=== PATIENT | male | born 1945 | race Caucasian/White ===

== ENCOUNTER 2018-03-18 12:01 | Emergency (ER) | payer OTHER ==
--- NOTE | 2018-03-18 12:20 | EDPHY ---
H & P Time Seen by Provider: 03/18/18 12:03 HPI/ROS: CHIEF COMPLAINT: Syncope, hit head HISTORY OF PRESENT ILLNESS: Patient is a 72-year-old diabetic man with a 3 vessel CABG 1 week ago at an outside hospital. Today he stood up abruptly been became lightheaded and syncopal. He fell and hit his head on the ground. He has a laceration to the occipital region. 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 He did not lose conscious. He is not currently on blood thinners. Severity: Moderate Modifying factors: Gradually improving REVIEW OF SYSTEMS: Constitutional: denies: chills, fever, recent illness, recent injury EENTM: denies: blurred vision, double vision, nose congestion Respiratory: denies: cough, shortness of breath Cardiac: denies: chest pain, irregular heart rate, lightheadedness, palpitations Gastrointestinal/Abdominal: denies: abdominal pain, diarrhea, nausea, vomiting, blood streaked stools Genitourinary: denies: dysuria, frequency, hematuria, pain Musculoskeletal: denies: joint pain, muscle pain Skin: denies: lesions, rash, jaundice, bruising Neurological: See HPI denies: headache, numbness, paresthesia, tingling, dizziness, weakness Hematologic/Lymphatic: denies: blood clots, easy bleeding, easy bruising Immunologic/allergic: denies: HIV/AIDS, transplant 10 systems reviewed and negative except as noted EXAM: GENERAL: Well-appearing, well-nourished and in no acute distress. HEAD: Atraumatic, normocephalic. EYES: Pupils equal round and reactive to light, extraocular movements intact, sclera anicteric, conjunctiva are normal. ENT: TMs normal, nares patent, oropharynx clear without exudates. Moist mucous membranes. NECK: Normal range of motion, supple without lymphadenopathy or JVD. LUNGS: Breath sounds clear to auscultation bilaterally and equal. No wheezes rales or rhonchi. HEART: Regular rate and rhythm without murmurs, rubs or gallops. ABDOMEN: Soft, nontender, normoactive bowel sounds. No guarding, no rebound. No masses appreciated. BACK: No CVA tenderness, no spinal tenderness, step-offs or deformities EXTREMITIES: Normal range of motion, no pitting or edema. No clubbing or cyanosis. NEUROLOGICAL: Answering questions appropriately, Cranial nerves II through XII grossly intact. Normal speech 5/5 strength, normal movement in all extremities , normal sensation, normal reflexes PSYCH: Normal mood, normal affect. SKIN: Warm, dry, normal turgor, no visible rashes or lesions. Source: Patient Exam Limitations: No limitations - Medical/Surgical History Hx Asthma: No Hx Chronic Respiratory Disease: No Hx Diabetes: Yes Hx Cardiac Disease: Yes Hx Renal Disease: No Hx Cirrhosis: No Hx Alcoholism: No - Family History Significant Family History: No pertinent family hx - Social History Smoking Status: Former smoker Alcohol Use: Sober Drug Use: None Constitutional: Initial Vital Signs Heart Rate 89 03/18/18 12:18 Respiratory Rate 24 H 03/18/18 12:18 Blood Pressure 156/78 H 03/18/18 12:18 O2 Sat (%) 97 03/18/18 12:18 O2 Delivery Mode Room Air O2 (L/minute) 3 Allergies/Adverse Reactions: No Known Allergies Allergy (Unverified 03/18/18 12:14) Home Medications: Medication Instructions Recorded Levothyroxine 03/18/18 Metformin HCl 03/18/18 Metoprolol Succinate 03/18/18 Zocor 03/18/18 Medical Decision Making - Diagnostics EKG Interpretation: An EKG obtained and was read and documented in trace view. Please see trace view for full reading and report. Sinus rhythm, no acute ischemic changes Imaging: Discussed imaging studies w/ scallop binder Radiologist Procedures: Procedure: Laceration repair. Verbal consent was obtained from the patient. The 3 cm occipital laceration was anesthetized with 1% lidocaine with epi and bicarbonate locally infiltrated. The wound was irrigated copiously according to protocol, draped and explored to its base. It was approximately 1 cm deep. There were no deep structures involved. No tendon, nerve, or vascular injury was identified when explored. No foreign body was identified. The wound was repaired with 4.0 Prolene, 3 sutures, interrupted. The wound repair was simple without wound margin revisement or multiple flap alignment. The procedure was performed by myself. A dressing was then placed with sterile gauze and bacitracin. ED Course/Re-evaluation: There was some delay in the ordering because of trouble with registration. 1:10 p.m. the patient continues to improve. His family states that he is acting normal. No chest pain. No shortness of breath. 1:50 p.m. the patient continues to do well. We discussed suture care. Family is here to take him home. Discussed concussion recovery. He does not have any chest pain. Differential Diagnosis: Partial list of the Differential diagnosis considered include but were not limited to; syncope, scalp laceration, concussion and although unlikely based on the history and physical exam, I also considered fracture, intracranial injury, acute coronary disease, arrhythmia. I discussed these differential diagnoses and the plan with the patient as well as the usual and expected course. The patient understands that the diagnosis is provisional and that in medicine we are not always correct and that further workup is often warranted. Usual and customary warnings were given. All of the patient's questions were answered. The patient was instructed to return to the emergency department should the symptoms at all worsen or return, otherwise to followup with the physician as we discussed. - Data Points Laboratory Results: Laboratory Results 03/18/18 12:12 03/18/18 12:12 Point of Care Test Results: Chemistry 03/18/18 12:14 POC Troponin I 0.01 ng/mL ng/mL (0.00-0.08) Departure - Departure Disposition: Home, Routine, Self-Care Clinical Impression: Syncope and collapse Concussion Qualifiers: Encounter type: initial encounter Loss of consciousness presence/duration: without LOC Qualified Code(s): S06.0X0A - Concussion without loss of consciousness, initial encounter Scalp laceration Qualifiers: Encounter type: initial encounter Qualified Code(s): S01.01XA - Laceration without foreign body of scalp, initial encounter Condition: Fair Instructions: Laceration (ED), Syncope (ED), Concussion (ED) Additional Instructions: Have your sutures removed in 10 days. Referrals: Patient,NotPresent [Unknown] - As per Instructions [facility] ,. [Edm Groups for Call Sched] - 2-3 days, if not improved
--- NOTE | 2018-03-18 12:41 | CPEKG ---
Test Reason : OPEN Blood Pressure : / mmHG Vent. Rate : 088 BPM Atrial Rate : 086 BPM P-R Int : 206 ms QRS Dur : 096 ms QT Int : 398 ms P-R-T Axes : 020 054 066 degrees QTc Int : 482 ms Sinus rhythm Low voltage, extremity leads Borderline prolonged QT interval Confirmed by Trae Wiseman ([id number]) on 03/18/2018 12:40:44 PM Referred By: Confirmed By:Trae Wiseman
[2018-03-18 13:07] LABS: PLATELET COUNT 759 10^3/uL (150-400)
[2018-03-28 14:39] VITALS: BP 107/76
== END 2018-03-18 14:15 | disposition home or self-care (01) ==
PROC: 0HQ0XZZ Repair Scalp Skin, External Approach (ICD-10-PCS; principal; 2018-03-18)
DX: S06.0X0A Concussion without loss of consciousness, initial encounter (principal); S01.01XA Laceration without foreign body of scalp, initial encounter; R55 Syncope and collapse; E11.9 Type 2 diabetes mellitus without complications; W19.XXXA Unspecified fall, initial encounter; Y92.9 Unspecified place or not applicable; Y93.9 Activity, unspecified; Y99.9 Unspecified external cause status; Z95.1 Presence of aortocoronary bypass graft; Z87.891 Personal history of nicotine dependence
CPT/HCPCS: 84484-ER; G0390